=== PATIENT | female | born 1985 | race Caucasian/White ===

== ENCOUNTER 2021-08-25 11:07 | Inpatient (IN) | payer MEDICARE ==
[~2021-08-25] VITALS: Ht 154.9 cm; Wt 59.0 kg
[2021-08-25] MEDS ORDERED: ONDANSETRON HCL INJ 2MG/ML 2ML 2 MG/ML VIAL IV STA (11:25)
[2021-08-25] MEDS ORDERED: CEFEPIME 2 GM in SODIUM CHLORIDE 0.9% 100 ML IV ONE (11:30)
[2021-08-25] MEDS ORDERED: SODIUM CHLORIDE 0.9% 1000ML 1,000 ML IV ONE (11:30)
[2021-08-25] MEDS ORDERED: Morphine 4mg Syringe 4 MG/ML INJ IV ONE (11:30)
[2021-08-25 11:57] LABS: BASOPHILS % 0.2 % (0.0-1.0); EOSINOPHILS % 0.1 % (0.0-6.0); HEMATOCRIT 38.4 % (34.2-44.1); LYMPHOCYTES # (AUTO) 0.8 (1.0-3.2); LYMPHOCYTES % 4.1 % (18.0-39.1); MEAN CORPUSCULAR HEMOGLOBIN 34.8 pg (28-32); MEAN CORPUSCULAR HGB CONC 33.9 g/dL (31-35); MEAN CORPUSCULAR VOLUME 102.7 fL (81-99); MONOCYTES # (AUTO) 1.3 (0.2-0.8); MONOCYTES % 6.9 % (4.4-11.3); NEUTROPHILS # (AUTO) 16.3 (2.1-6.9); NEUTROPHILS % 88.2 % (38.7-80.0); PLATELET COUNT 234 x10e3/uL (140-360); RED BLOOD COUNT 3.74 x10e6/uL (3.6-5.1); RED CELL DISTRIBUTION WIDTH 13.5 % (11.7-14.4)
[2021-08-25 12:17] LABS: INR 1.03; PROTHROMBIN TIME 14.4 seconds (11.9-14.5)
[2021-08-25 12:18] LABS: PARTIAL THROMBOPLASTIN TIME 31.8 seconds (23.8-35.5)
[2021-08-25 12:27] LABS: ALBUMIN 3.7 g/dL (3.5-5.0); ALBUMIN/GLOBULIN RATIO 1.1 (0.8-2.0); ANION GAP 12.9 mmol/L (8-16); CALCIUM 8.5 mg/dL (8.4-10.2); CREATININE, SERUM 0.85 mg/dL (0.57-1.11); POTASSIUM 3.9 mmol/L (3.5-5.1)
[2021-08-25] MEDS ORDERED: ONDANSETRON HCL INJ 2MG/ML 2ML 2 MG/ML VIAL IV PRN (13:45)
[2021-08-25] MEDS ORDERED: SODIUM CHLORIDE 0.9% 1000ML 1,000 ML IV SCH (13:45)
[2021-08-25 17:36] VITALS: BP 109/64
[2021-08-25] MEDS ORDERED: VALIUM10 MG PO (18:11)
[2021-08-25] MEDS: Morphine 4mg Syringe 4 MG/ML INJ IV PRN ×2 (18:20→22:54)
[2021-08-25 18:43] VITALS: BP 109/64
[2021-08-25] MEDS ORDERED: ACETAMINOPHEN 325 MG TAB PO PRN (18:45)
[2021-08-25] MEDS ORDERED: ZOLPIDEM TARTRATE 5 MG TAB PO PRN (18:45)
[2021-08-25 20:00] VITALS: BP 110/70
[2021-08-25] MEDS: KETOROLAC TROMETHAMINE 30 MG/ML VIAL IV SCH (21:46)
[2021-08-25] MEDS: Vancomycin IV 1 GM in SODIUM CHLORIDE 0.9% 250ML 250 ML IV SCH (21:50)
[2021-08-26] VITALS (8 sets, daily range): BP systolic 96–111; BP diastolic 58–68
[2021-08-26] MEDS ORDERED: KETOROLAC TROMETHAMINE 30 MG/ML VIAL IV SCH
[2021-08-26] MEDS ORDERED: HYDRALAZINE HCL 20 MG/ML VIAL IV PRN (00:30)
[2021-08-26] MEDS ORDERED: DEXTROSE 50% SYRINGE 50 ML IV PRN (00:30)
[2021-08-26] MEDS ORDERED: DIPHENHYDRAMINE HCL 25 MG CAP PO PRN (00:30)
[2021-08-26] MEDS ORDERED: LIDOCAINE 4% PATCH TP PRN (00:30)
[2021-08-26] MEDS ORDERED: BENZONATATE 100 MG CAP PO PRN (00:30)
[2021-08-26] MEDS ORDERED: ALBUTEROL/IPRATROPIUM 3 ML NEB NEB PRN (00:30)
[2021-08-26] MEDS ORDERED: CHLORASEPTIC SPRAY 177 ML BTL MM PRN (00:30)
[2021-08-26] MEDS ORDERED: SIMETHICONE 80 MG CHEW PO PRN (00:30)
[2021-08-26] MEDS ORDERED: ONDANSETRON HCL INJ 2MG/ML 2ML 2 MG/ML VIAL IV PRN (00:30)
[2021-08-26] MEDS ORDERED: DOCUSATE SODIUM 100 MG CAP PO PRN (00:30)
[2021-08-26] MEDS ORDERED: POTASSIUM CHLORIDE 20 MEQ TAB CR PO PRN (00:30)
[2021-08-26] MEDS: KETOROLAC TROMETHAMINE 30 MG/ML VIAL IV SCH ×3 (02:48→14:19)
[2021-08-26 05:37] LABS: BASOPHILS % 0.2 % (0.0-1.0); EOSINOPHILS # (AUTO) 0.1 (0.0-0.4); EOSINOPHILS % 0.9 % (0.0-6.0); HEMATOCRIT 32.1 % (34.2-44.1); HEMOGLOBIN 10.7 g/dL (12.0-16.0); LYMPHOCYTES # (AUTO) 1.8 (1.0-3.2); LYMPHOCYTES % 14.4 % (18.0-39.1); MEAN CORPUSCULAR HEMOGLOBIN 34.2 pg (28-32); MEAN CORPUSCULAR HGB CONC 33.3 g/dL (31-35); MEAN CORPUSCULAR VOLUME 102.6 fL (81-99); MONOCYTES % 8.1 % (4.4-11.3); NEUTROPHILS # (AUTO) 9.5 (2.1-6.9); NEUTROPHILS % 75.9 % (38.7-80.0); PLATELET COUNT 196 x10e3/uL (140-360); RED BLOOD COUNT 3.13 x10e6/uL (3.6-5.1); RED CELL DISTRIBUTION WIDTH 13.3 % (11.7-14.4)
[2021-08-26 06:05] LABS: ANION GAP 8.5 mmol/L (8-16); CALCIUM 7.4 mg/dL (8.4-10.2); CREATININE, SERUM 0.71 mg/dL (0.57-1.11); POTASSIUM 3.5 mmol/L (3.5-5.1)
[2021-08-26] MEDS: PANTOPRAZOLE SOD 40 MG TABEC PO SCH (09:11)
[2021-08-26] MEDS: Vancomycin IV 1 GM in SODIUM CHLORIDE 0.9% 250ML 250 ML IV SCH ×2 (09:12→19:52)
[2021-08-26] MEDS: HYDROCODONE/APAP 5MG-325MG TAB PO PRN ×2 (15:02→22:48)
[2021-08-26] MEDS: ENOXAPARIN SOD INJ 40 MG/0.4 ML SYR SC SCH (16:32)
[2021-08-26] MEDS: SODIUM CHLORIDE FLUSH 10 ML SYR INJ PRN (20:30)
[2021-08-26] MEDS: TRAZODONE HCL 50 MG TAB PO PRN (22:47)
[2021-08-27] VITALS (7 sets, daily range): BP systolic 103–121; BP diastolic 66–94
[2021-08-27 05:03] LABS: BASOPHILS % 0.2 % (0.0-1.0); EOSINOPHILS # (AUTO) 0.1 (0.0-0.4); EOSINOPHILS % 1.5 % (0.0-6.0); HEMATOCRIT 28.7 % (34.2-44.1); HEMOGLOBIN 9.6 g/dL (12.0-16.0); LYMPHOCYTES # (AUTO) 1.5 (1.0-3.2); LYMPHOCYTES % 15.9 % (18.0-39.1); MEAN CORPUSCULAR HGB CONC 33.4 g/dL (31-35); MEAN CORPUSCULAR VOLUME 101.8 fL (81-99); MONOCYTES # (AUTO) 0.6 (0.2-0.8); MONOCYTES % 6.4 % (4.4-11.3); NEUTROPHILS # (AUTO) 7.2 (2.1-6.9); NEUTROPHILS % 75.6 % (38.7-80.0); PLATELET COUNT 199 x10e3/uL (140-360); RED BLOOD COUNT 2.82 x10e6/uL (3.6-5.1); RED CELL DISTRIBUTION WIDTH 13.2 % (11.7-14.4)
[2021-08-27 05:35] LABS: ANION GAP 7.5 mmol/L (8-16); CALCIUM 7.3 mg/dL (8.4-10.2); CREATININE, SERUM 0.62 mg/dL (0.57-1.11); POTASSIUM 3.5 mmol/L (3.5-5.1)
[2021-08-27] MEDS: PANTOPRAZOLE SOD 40 MG TABEC PO SCH (08:12)
[2021-08-27] MEDS: HYDROCODONE/APAP 5MG-325MG TAB PO PRN ×3 (08:12→20:57)
[2021-08-27] MEDS: Vancomycin IV 1 GM in SODIUM CHLORIDE 0.9% 250ML 250 ML IV SCH ×2 (09:14→20:10)
[2021-08-27] MEDS: ENOXAPARIN SOD INJ 40 MG/0.4 ML SYR SC SCH (17:15)
[2021-08-27] MEDS: SODIUM CHLORIDE FLUSH 10 ML SYR INJ PRN (20:10)
[2021-08-27] MEDS: TRAZODONE HCL 50 MG TAB PO PRN (20:57)
[2021-08-28] VITALS (7 sets, daily range): BP systolic 101–140; BP diastolic 72–86
[2021-08-28 05:32] LABS: BASOPHILS % 0.4 % (0.0-1.0); EOSINOPHILS # (AUTO) 0.1 (0.0-0.4); EOSINOPHILS % 1.4 % (0.0-6.0); HEMATOCRIT 28.2 % (34.2-44.1); HEMOGLOBIN 9.5 g/dL (12.0-16.0); LYMPHOCYTES # (AUTO) 1.7 (1.0-3.2); MEAN CORPUSCULAR HEMOGLOBIN 34.2 pg (28-32); MEAN CORPUSCULAR HGB CONC 33.7 g/dL (31-35); MEAN CORPUSCULAR VOLUME 101.4 fL (81-99); MONOCYTES # (AUTO) 0.7 (0.2-0.8); MONOCYTES % 8.4 % (4.4-11.3); NEUTROPHILS # (AUTO) 5.3 (2.1-6.9); NEUTROPHILS % 67.4 % (38.7-80.0); PLATELET COUNT 235 x10e3/uL (140-360); RED BLOOD COUNT 2.78 x10e6/uL (3.6-5.1); RED CELL DISTRIBUTION WIDTH 13.2 % (11.7-14.4)
[2021-08-28 05:57] LABS: ANION GAP 9.3 mmol/L (8-16); CALCIUM 7.5 mg/dL (8.4-10.2); CREATININE, SERUM 0.62 mg/dL (0.57-1.11); POTASSIUM 3.3 mmol/L (3.5-5.1)
[2021-08-28] MEDS: PANTOPRAZOLE SOD 40 MG TABEC PO SCH (08:21)
[2021-08-28] MEDS: HYDROCODONE/APAP 5MG-325MG TAB PO PRN ×3 (08:21→20:30)
[2021-08-28] MEDS: Vancomycin IV 1 GM in SODIUM CHLORIDE 0.9% 250ML 250 ML IV SCH (08:25)
[2021-08-28] MEDS: NICOTINE 21 MG/EA PATCH TOP PRN (14:27)
[2021-08-28] MEDS: ENOXAPARIN SOD INJ 40 MG/0.4 ML SYR SC SCH (16:34)
[2021-08-28] MEDS: Vancomycin IV 1.25 GM in SODIUM CHLORIDE 0.9% 250ML 250 ML IV SCH (20:39)
[2021-08-29] VITALS (7 sets, daily range): BP systolic 124–136; BP diastolic 87–97
[2021-08-29] MEDS: TRAZODONE HCL 50 MG TAB PO PRN ×2 (00:28→22:37)
[2021-08-29] MEDS: NICOTINE 21 MG/EA PATCH TOP PRN (09:11)
[2021-08-29] MEDS: PANTOPRAZOLE SOD 40 MG TABEC PO SCH (09:13)
[2021-08-29] MEDS: HYDROCODONE/APAP 5MG-325MG TAB PO PRN ×3 (09:13→22:37)
[2021-08-29] MEDS: Vancomycin IV 1.25 GM in SODIUM CHLORIDE 0.9% 250ML 250 ML IV SCH ×2 (09:22→20:54)
[2021-08-29] MEDS ORDERED: ONDANSETRON HCL 4 MG ORAL DISINTEGRATING TAB PO PRN (14:45)
[2021-08-29] MEDS ORDERED: SODIUM CHLORIDE 0.9% 1000ML 1,000 ML ONE (15:02)
[2021-08-29] MEDS: ENOXAPARIN SOD INJ 40 MG/0.4 ML SYR SC SCH (16:40)
[2021-08-30] VITALS: BP 126/80
[2021-08-30 04:00] VITALS: BP 106/66
[2021-08-30 08:12] VITALS: BP 129/86
[2021-08-30 08:46] VITALS: BP 129/86
[2021-08-30] MEDS ORDERED: MIDAZOLAM HCL 2 MG/2 ML VIAL ONE (09:10)
[2021-08-30] MEDS ORDERED: FENTANYL CITRATE/PF 100MCG/2 ML INJ ONE (09:10)
[2021-08-30] MEDS: HYDROCODONE/APAP 5MG-325MG TAB PO PRN (10:47)
[2021-08-30] MEDS: PANTOPRAZOLE SOD 40 MG TABEC PO SCH (10:47)
[2021-08-30 12:40] VITALS: BP 128/88
[2021-08-30] MEDS ORDERED: DOXYCYCLINE HY100 MG PO (14:30)
[2021-08-30] MEDS ORDERED: PROPOFOL IV EMULSION 10 MG/ML 20 ML VIAL ONE (15:41)
[2021-08-30] MEDS ORDERED: ONDANSETRON HCL INJ 2MG/ML 2ML 2 MG/ML VIAL ONE (15:41)
[2021-08-30] MEDS ORDERED: POVIDONE IODINE 0.05% 0.05 % ML PO ONE (15:41)
[2021-08-30] MEDS ORDERED: SEVOFLURANE INHAL SOLN 250 ML PEN BTL ONE (15:41)
[2021-08-30] MEDS ORDERED: DEXAMETHASONE SOD PHOS INJ 4 MG/ML SDV ONE (15:41)
== END 2021-08-30 15:00 | disposition home or self-care (01) | DRG 854 ==
LOC: ER 13:20 → ERHOLD 13:45 → MED/SURG3 17:30
PROVIDERS: ADMIT Internal Medicine; ATTEND Internal Medicine
PROC: 3E03329 Introduction of Other Anti-infective into Peripheral Vein, Percutaneous Approach (ICD-10-PCS; principal; 2021-08-25)
PROC: 0JDD0ZZ Extraction of Right Upper Arm Subcutaneous Tissue and Fascia, Open Approach (ICD-10-PCS; 2021-08-30)
DX: A41.9 Sepsis, unspecified organism (principal); L02.411 Cutaneous abscess of right axilla; L03.111 Cellulitis of right axilla; L03.113 Cellulitis of right upper limb; L03.313 Cellulitis of chest wall; F41.9 Anxiety disorder, unspecified; Z88.2 Allergy status to sulfonamides; Z91.041 Radiographic dye allergy status; B95.62 Methicillin resistant Staphylococcus aureus infection as the cause of diseases classified elsewhere; Z20.822 Contact with and (suspected) exposure to COVID-19
CPT/HCPCS: 36415; 73200; 80048; 80053; 80202; 83036; 83605; 85025; 85610; 85730; 87040; 87071; 87075; 87186; 87205; 94799; 96361; 99284; J0692; J1100; J1650; J1885; J2250; J2270; J2405; J3010; J3370; J7030; J7050; U0002

== ENCOUNTER 2021-09-08 09:33 | Emergency (ER) | payer MEDICARE ==
[~2021-09-08] VITALS: Ht 154.9 cm; Wt 59.0 kg
[~2021-09-08 09:33] MED LIST: DOXYCYCLINE HY100 MG PO; VALIUM10 MG PO
[2021-09-08] MEDS ORDERED: ONDANSETRON HCL INJ 2MG/ML 2ML 2 MG/ML VIAL IV STA (09:48)
[2021-09-08] MEDS ORDERED: KETOROLAC TROMETHAMINE 30 MG/ML VIAL IV STA (09:48)
[2021-09-08] MEDS ORDERED: SODIUM CHLORIDE FLUSH 10 ML SYR IV PRN (10:00)
[2021-09-08 10:06] LABS: BASOPHILS # (AUTO) 0.1 (0.0-0.1); BASOPHILS % 0.4 % (0.0-1.0); EOSINOPHILS # (AUTO) 0.1 (0.0-0.4); EOSINOPHILS % 0.6 % (0.0-6.0); HEMATOCRIT 38.2 % (34.2-44.1); LYMPHOCYTES # (AUTO) 2.5 (1.0-3.2); LYMPHOCYTES % 16.1 % (18.0-39.1); MEAN CORPUSCULAR HEMOGLOBIN 34.6 pg (28-32); MEAN CORPUSCULAR VOLUME 101.6 fL (81-99); MONOCYTES # (AUTO) 0.7 (0.2-0.8); MONOCYTES % 4.5 % (4.4-11.3); NEUTROPHILS % 77.4 % (38.7-80.0); PLATELET COUNT 430 x10e3/uL (140-360); RED BLOOD COUNT 3.76 x10e6/uL (3.6-5.1); RED CELL DISTRIBUTION WIDTH 14.1 % (11.7-14.4)
[2021-09-08 10:28] LABS: ALBUMIN 3.6 g/dL (3.5-5.0); ALBUMIN/GLOBULIN RATIO 1.2 (0.8-2.0); ANION GAP 10.9 mmol/L (8-16); CALCIUM 8.2 mg/dL (8.4-10.2); CREATININE, SERUM 0.83 mg/dL (0.57-1.11); POTASSIUM 3.9 mmol/L (3.5-5.1)
[2021-09-08 10:55] LABS: CLARITY,URINE CLEAR (CLEAR); COLOR,URINE YELLOW (YELLOW); KETONES,URINE NEGATIVE (NEGATIVE); LEUKOCYTE ESTERASE ,URINE NEGATIVE (NEGATIVE); NITRITE,URINE NEGATIVE (NEGATIVE); PROTEIN,URINE DIPSTICK NEGATIVE (NEGATIVE)
[2021-09-08 10:56] LABS: URINE UROBILINOGEN 0.2 mg/dL (0.2 - 1)
[2021-09-08 11:00] LABS: BACTERIA,URINE MODERATE /HPF; EPITHELIAL CELLS,URINE MANY /LPF; RBC,URINE 0-5 /HPF (0-5)
[2021-09-08] MEDS ORDERED: Morphine 4mg Syringe 4 MG/ML INJ IV ONE (11:45)
[2021-09-08] MEDS ORDERED: CIPRO500 MG PO (13:02)
== END 2021-09-08 13:28 | disposition home or self-care (01) ==
LOC: ER 09:55
DX: R10.11 Right upper quadrant pain (principal); R10.31 Right lower quadrant pain; Z20.822 Contact with and (suspected) exposure to COVID-19; F17.210 Nicotine dependence, cigarettes, uncomplicated
CPT/HCPCS: 36415; 74176; 80053; 81001; 81025; 83605; 84702; 85025; 87040; 99284; J1885; J2270; J2405; U0002